=== PATIENT | female | born 2005 | race Caucasian/White ===

== ENCOUNTER 2023-08-18 10:51 | Emergency (ER) | payer BC ==
[~2023-08-18] VITALS: Ht 165.1 cm; Wt 63.6 kg
[2023-08-18 11:05] VITALS: TEMP 98.7
[2023-08-18] MEDS ORDERED: CYMBALTA 60MG60 MG PO (11:25)
[2023-08-18] MEDS ORDERED: ATARAX 25MG25 MG/TAB PO (11:26)
[2023-08-18 12:01] LABS: URINE APPEARANCE CLOUDY (CLEAR/HAZY); URINE BLOOD NEGATIVE (NEGATIVE); URINE COLOR YELLOW (YELLOW); URINE GLUCOSE NEGATIVE (NEGATIVE); URINE KETONE TRACE (NEGATIVE); URINE NITRATE NEGATIVE (NEGATIVE); URINE PROTEIN(semi-quant) NEGATIVE (NEGATIVE); URINE UROBILINOGEN 0.2 E.U/dL (0.2-1.0)
[2023-08-18 12:24] LABS: COLLECTION METHOD CLEAN CATCH; URINE RBC 0-2 /hpf (0-2)
[2023-08-18 12:26] LABS: URINE BACTERIA MANY /hpf (NONE SEEN)
[2023-08-18 13:23] VITALS: BP 120/80; PULSE 89
== END 2023-08-18 13:23 | disposition home or self-care (01) ==
LOC: COL.ER 10:51
PROVIDERS: Physician Assistant
DX: F32.A Depression, unspecified (principal); R45.851 Suicidal ideations; F41.9 Anxiety disorder, unspecified; Z79.899 Other long term (current) drug therapy